=== PATIENT | female | born 1990 | race Hispanic/Latino ===

== ENCOUNTER 2017-12-21 12:14 | Emergency (ER) | payer OTHER ==
[~2017-12-21] VITALS: Ht 175.3 cm; Wt 111.1 kg
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
[2017-12-21] MEDS ORDERED: CYCLOBENZAPRINE5 M2 PO (14:02)
[2017-12-21] MEDS ORDERED: TRAMADOL HCL50 M1 PO (14:02)
[2017-12-21 14:14] VITALS: BP 120/70
== END 2017-12-21 14:14 ==
LOC: ERH 12:14
DX: M54.5 Low back pain (principal)
CPT/HCPCS: 72110; 81025; J1885